=== PATIENT | male | born 1990 | race Caucasian/White ===

== ENCOUNTER 2023-11-18 12:52 | Outpatient (AMB) | payer OTHER, SELFPAY ==
--- NOTE | 2023-11-18 13:13 | MHC.OFFWIV ---
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 Reports doing yard work today and about 1 hour ago stepped on a evy nail that went through his shoe and into his great toe. He was able to immediately remove it and clean it. Unsure of last tetanus shot. Exam Exam very small puncture wound to left great toe, no bleeding. Plan Tdap today and 3 days of Augmentin for prophylaxis. This note is constructed using voice recognition software. While every effort has been made to ensure accuracy in machine shorthand teacher, still errors may have been included Sometimes, these errors may affect the content or meaning of the given sentence . PFSH Social History Patient Tobacco Use Status: Never used Tobacco Physical Exam Vital Signs: Last Vital Signs Temp 99.1 F 11/18/23 13:17 Pulse 93 11/18/23 13:17 BP 120/74 11/18/23 13:17 Pulse Ox 96 11/18/23 13:17 Oxygen Delivery Method Room Air 11/18/23 13:17 BMI result Body Mass Index 30.9 Assessment & Plan Assessment & Plan (1) Puncture wound of great toe w/o foreign body w/o damage to nail: Code(s): S91.133A - Puncture wound without foreign body of unspecified great toe without damage to nail, initial encounter Qualifiers: Encounter type: initial encounter Laterality: left Qualified Code(s): S91.132A - Puncture wound without foreign body of left great toe without damage to nail, initial encounter Plan: . Orders: Orders TDaP Immunization Today Z23 - Encounter for immunization Medications: New amoxicillin-pot clavulanate 875-125 mg 1 tab PO BID 6 tabs 0RF 3 days Coding Level of Care Code Est Pt Level 3 (08607) Diagnoses Puncture wound of left great toe without foreign body without damage to nail, initial encounter S91.132A Encounter type: initial encounter Laterality: left
[2023-11-18 13:17] VITALS: BP 120/74; PULSE 93; TEMP 37.3; O2SAT 96; BMI 30.9
== END 2023-11-18 14:22 | disposition home or self-care (01) ==
PROVIDERS: Visit Provider Nurse Practitioner Family
DX: S91.132A Puncture wound without foreign body of left great toe without damage to nail, initial encounter (principal)
CPT/HCPCS: 90471; 90715; 99051; 99213